=== PATIENT | male | born 1955 ===

== ENCOUNTER 2017-09-13 08:00 | Observation (INO) ==
--- OUTSIDE RECORDS SUMMARY | 2017-09-13 08:09 | External Medical Summary | Summary of Care ---
:1955 Author Name Shmuel Daley M.D. Address Unavailable Unavailable , Care Team Providers Name Role Phone Shmuel Daley M.D. Unavailable Unavailable Shmuel Daley Unavailable Unavailable Unavailable Unavailable Unavailable Functional Status Functional Status Health Issues Name Dates Details Functional status health issues are not documented Status: Cognitive Status Health Issues Name Dates Details Cognitive status health issues are not documented Status: Problems Name Dates Details Restless legs syndrome (333.94, G25.81) Status: Active Exposure to STD (V01.6, Z20.2) Status: Active Tinea corporis (110.5, B35.4) Status: Active Atopic dermatitis (691.8, L20.9) Status: Active Urticaria (708.9, L50.9) Status: Active Acute sinusitis (461.9, J01.90) Status: Active Microscopic hematuria (599.72, R31.29) Status: Active URI, acute (465.9, J06.9) Status: Active Hematuria (599.70, R31.9) Status: Active 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, E29.1) Status: Active Male erectile disorder (607.84, N52.9) Status: Active Epicondylitis, lateral (726.32, M77.10) Status: Active Ganglion of hand, left (727.41, M67.442) Status: Active Pain of left hand (729.5, M79.642) Status: Active Other cyst of bone, hand (733.29, M85.649) Status: Active Numbness in feet (782.0, R20.0) Status: Active Paresthesia (782.0, R20.2) Status: Active Hypercholesterolemia (272.0, E78.00) Status: Active Shortness of breath (786.05, R06.02) Status: Active Near syncope (780.2, R55) Status: Active Medications Name Dates Details Benadryl 25 MG TABS TAKE 1-2 TABLET EVERY 4 HOURS NEEDED Refills: 0 Start 28-Dec-2013 Active Isela Allergy 180 MG Oral Tablet TAKE 1 TABLET DAILY NEEDED. Quantity: 90 Refills: 0 Shmuel Daley M.D. Start 22-Jul-2015 Active Allergies and Adverse Reactions Name Dates Details No Known Drug Allergies (Allergy) Status: Active Past Medical History Name Dates Details H/O shortness of breath (V13.89, Z87.898) Status: Resolved History of dizziness (V13.89, Z87.898) Status: Resolved Procedures Procedure Dates Details History of Foot Surgery Left [facility] (within facility) Ordered: 08-Jul-2016 ULTRASOUND CAROTID Ordered: 08-Jul-2016 Immunization Name Dates Details Immunizations not documented Family History Unknown Family Member Name Dates Details Family history of Alcoholism Comments: Family History Status: Active Family history of Colon Cancer (V16.0) Comments: Family History Status: Active Father Name Dates Details Family history of Emphysema Status: Active Family history of Prostate Cancer (V16.42) Status: Active Social History Name Dates Details - Status: Smoking Status Name Dates Details Smoker. current status unknown Vital Signs Date Test Result Details 08-Jul-2016 09:38 BP Systolic 112 mm[Hg] Status: Comments: Location: ; Position: BP Diastolic 70 mm[Hg] Status: Comments: Location: ; Position: Heart Rate 80 /min Status: Comments: Location: ; Height 70 in Status: Weight 197 lb Status: Physical Findings 98 Status: Comments: O2 Saturation Body Mass Index Calculated 28.27 kg/m2 Status: Body Surface Area Calculated 2.07 m2 Status: Results Date Description Value Details 08-Jul-2016 10:11 CP Stress Echo Y STRESS ECHO Plan of Care Name Dates Details Planned Observations [facility]iology [facility] (within facility) On 08-Jul-2016 Intent Planned Goals not documented Interventions Provided Medication ChangesCrestor 20 MG Oral Tablet - CompletedLabs/Procedures/Imaging ULTRASOUND CAROTID; To be Done: 08 Jul 2016 Instructions Name Dates Details Instructions not documented Encounters Appointment; Juan Dunne M.D. On 31-Mar-2016 Encounter Diagnosis: Problem not documented 08:30 Appointment; Shmuel Daley M.D. On Encounter Diagnosis: Problem not documented 15:45 Appointment; Robert Cheema M.D. On 16-Oct-2015 Encounter Diagnosis: Problem not documented 14:30 Appointment; Shmuel Daley M.D. On 02-Oct-2015 Encounter Diagnosis: Problem not documented 13:30 Appointment; Shmuel Daley M.D. On 22-Jul-2015 Encounter Diagnosis: Problem not documented 10:30 Appointment; Sin Santiago M.D.,DEBBI[facility], On 20-Sep-2014 Encounter Diagnosis: Problem not documented 09:30 Appointment; hSmuel Daley M.D. On 10-Sep-2014 Encounter Diagnosis: Problem not documented 14:00 Appointment; Sin Santiago M.D.,DEBBI[facility], On 02-Sep-2014 Encounter Diagnosis: Problem not documented 10:00 Appointment; Shmuel Daley M.D. On 29-Jul-2014 Encounter Diagnosis: Problem not documented 10:30
--- OUTSIDE RECORDS SUMMARY | 2017-09-13 08:09 | External Medical Summary | Summary of Care ---
:1955 Author Name Shmuel Daley M.D. Address [address], [place] [id number] Care Team Providers Name Role Phone Shmuel Daley M.D. 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 Started 12-Apr-2013 ActiveBenadryl 25 MG Oral Tablet TAKE 1-2 TABLET EVERY 4 HOURS NEEDED Refills: 0 Started 28-Dec-2013 ActiveAndroGel Pump 20.25 MG/ACT (1.62%) Transdermal Gel apply one pump daily Quantity: 1 Refills: 0 Shmuel Daley M.D. Started 06-Aug-2014 [id number] GM Pump Btl Allergies and Adverse Reactions Name Dates Details No Known Drug Allergies Status: Active Procedures Procedure Dates Details History of Foot Surgery Left Testosterone 3102 Ordered:26-Aug-2014 Immunization Name Dates Details Immunizations not documented Family History Unknown Family Member Name Dates Details Family history of Alcoholism Comments: Family History Status: Active Family history of Colon Cancer (V16.0) Comments: Family History Status: Active Father Name Dates Details Family history of Emphysema Status: Active Family history of Prostate Cancer (V16.42) Status: Active Social History Smoking StatusUnknown if ever smoked Vital Signs Date Test Result Details No Known Vitals to report Results Date Description Value Details 03-Aug-2014 10:02 Urinalysis, Reflex to Microscopic or Culture PRN 8005 pH 6.5 (Better) Range: 5.0-7.5 SP GRAVITY 1.025 (Better) Range: 1.010-1.030 APPEARANCE CLEAR (Better) Range: Clear COLOR YELLOW (Better) Range: Straw-Yellow PROTEIN NEGATIVE mg/dL Range: Negative-Trace (Better) GLUCOSE NEGATIVE mg/dL Range: Negative (Better) KETONE NEGATIVE mg/dL Range: Negative (Better) BILIRUB NEGATIVE (Better) Range: Negative BLOOD MODERATE (Abnormal) Range: Negative UROBIL 1.0 EU/dL (Better) Range: 0.2-1.0 NITRITE NEGATIVE (Better) Range: Negative LEUK NEGATIVE (Better) Range: Negative 10:02 Urine Microscopic UMIC RBC 0-2 /HPF (Better) Range: 0-2 HYAL CAST 0-2 /LPF (Better) Range: 0-2 BACTERIA Trace /HPF (Better) Range: Negative-Trace EPITH 0-2 /HPF (Better) Range: 0-10 Plan of Care Planned Observations Name Dates Details Planned Goals not documented Goal Planned Encounters Appointment; Provider: Sin Santiago On 02-Sep-2014 10:00 Instructions Instructions not documented Encounters Appointment; Shmuel Daley On 29-Jul-2014 Encounter Diagnosis: Problem not documented 10:30 Appointment; Best Dominguez On 20-Feb-2014 Encounter Diagnosis: Problem not documented 11:30 Appointment; Shmuel Daley On 23-Jan-2014 Encounter Diagnosis: Problem not documented 15:15 Appointment; Shmuel Daley On 28-Dec-2013 Encounter Diagnosis: Problem not documented 14:45 Appointment; Shmuel Daley On 31-Aug-2013 Encounter Diagnosis: Problem not documented 14:30 Appointment; Shmuel Daley On 01-Jun-2013 Encounter Diagnosis: Problem not documented 15:30 Appointment; Shmuel Daley On 12-Apr-2013 Encounter Diagnosis: Problem not documented 10:30
--- OUTSIDE RECORDS SUMMARY | 2017-09-13 08:10 | External Medical Summary | Summary of Care ---
:1955 Author Name Jack Morales, DEBBIE, ,Sin Address [address] [place], [place] [id number] Care Team Providers Name Role Phone Shmuel [...] serum testosterone level (257.2, E29.1) Status: Active Microscopic hematuria (599.72, R31.2) Status: Active Medications Name Dates Details Crestor 20 MG Oral Tablet Take 1 tablet daily Quantity: 90 Refills: 3 Shmuel Daley M.D. Started 12-Apr-2013 ActiveBenadryl 25 MG Oral Tablet TAKE 1-2 TABLET EVERY 4 HOURS NEEDED Refills: 0 Started 28-Dec-2013 ActiveAndroGel Pump 20.25 MG/ACT (1.62%) Transdermal Gel apply one pump daily Quantity: 1 Refills: 0 Shmuel Daley M.D. Started 06-Aug-2014 [id number] GM Pump Btl Allergies and Adverse Reactions Name Dates Details No Known Drug Allergies Status: Active Procedures Procedure Dates Details History of Foot Surgery Left URINE CULTURE 5010 Ordered:02-Sep-2014 CT AB/ PEL WITHOUT AND WITH ORAL AND IV CONTRAST Ordered:02-Sep-2014 Immunization Name Dates Details Immunizations not documented [...] smoked Vital Signs Date Test Result Details 02-Sep-2014 10:11 BP Systolic 135 mm[Hg] Status: BP Diastolic 81 mm[Hg] Status: Results Date Description Value Details 02-Sep-2014 10:18 Testosterone 3102 TST 154 ng/dL (Below low Range: 241-827 threshold) 12:05 CYTOLOGY - URINE 4444 CYTOLOGY Specimen referred to [facility]. Report to follow. (Better) Plan of Care Planned Observations Name Dates Details Planned Goals not documented Goal Planned Encounters Appointment; Provider: Sin Santiago On 20-Sep-2014 09:30 Instructions Instructions not documented Encounters Appointment; Sin Santiago On 02-Sep-2014 Encounter Diagnosis: Problem not documented 10:00 Appointment; Shmuel Daley On 29-Jul-2014 Encounter Diagnosis: [...]
--- OUTSIDE RECORDS SUMMARY | 2017-09-13 08:10 | External Medical Summary | Summary of Care ---
[...] (461.9, J01.90) Status: Active Microscopic hematuria (599.72, R31.2) Status: Active URI, acute (465.9, J06.9) Status: [...] Numbness in feet (782.0, R20.0) Status: Active Medications Name Dates Details Crestor 20 MG Oral Tablet Take 1 tablet daily Quantity: 90 Refills: 3 Shmuel Daley M.D. Started 12-Apr-2013 ActiveBenadryl 25 MG Oral Tablet TAKE 1-2 TABLET EVERY 4 HOURS NEEDED Refills: 0 Started 28-Dec-2013 ActiveAllegra Allergy 180 MG Oral Tablet TAKE 1 TABLET DAILY NEEDED. Quantity: 90 Refills: 0 Shmuel Daley M.D. Started 22-Jul-2015 Active Allergies and Adverse Reactions Name Dates Details No Known Drug Allergies Status: Active Procedures Procedure Dates Details History of Foot Surgery Left Comprehensive Metabolic Panel 1212 Ordered: CBC w/ Auto Diff 7150 Ordered: Urinalysis, Reflex to Microscopic or Culture PRN 8005 Ordered: FOLATE 3608 Ordered: VITAMIN B12 3606 Ordered: Vitamin D, 25 - Hydroxy 3111 Ordered: THYROID STIM. HORMONE 3602 Ordered: FREE T4 3604 Ordered: Immunization Name Dates Details Immunizations not documented Family History Unknown Family Member Name Dates Details Family history of Alcoholism Comments: Family History Status: Active Family history of Colon Cancer (V16.0) Comments: Family History Status: Active Father Name Dates Details Family history of Emphysema Status: Active Family history of Prostate Cancer (V16.42) Status: Active Social History Name Dates Details Smoking StatusCurrent some day smoker Vital Signs Date Test Result Details 16:21 BP Systolic 112 mm[Hg] Status: BP Diastolic 72 mm[Hg] Status: Weight 190 lb Status: Body Mass Index Calculated 27.26 kg/m2 Status: Body Surface Area Calculated 2.04 m2 Status: Results Date Description Value Details Results not documented Plan of Care Planned Observations Name Dates Details Planned Goals not documented Goal Planned Encounters Appointment; Provider: Shmuel Daley On 19-Jan-2016 09:00 Appointment; Provider: Juan Dunne On 15-Jan-2016 15:00 Instructions Instructions not documented Encounters Appointment; Shmuel Daley On Encounter Diagnosis: Problem not documented 15:45 Appointment; Robert Cheema On 16-Oct-2015 Encounter Diagnosis: Problem not documented 14:30 Appointment; Shmuel Daley On 02-Oct-2015 Encounter Diagnosis: Problem not documented 13:30 Appointment; Shmuel Daley On 22-Jul-2015 Encounter Diagnosis: Problem not documented 10:30 Appointment; Sin Santiago On 20-Sep-2014 Encounter Diagnosis: Problem not documented 09:30 Appointment; Shmuel Daley On 10-Sep-2014 Encounter Diagnosis: Problem not documented 14:00 Appointment; Sin Santiago On 02-Sep-2014 Encounter Diagnosis: Problem not documented 10:00 Appointment; Shmuel Daley On 29-Jul-2014 Encounter Diagnosis: Problem not documented 10:30 Appointment; Best Dominguez On 20-Feb-2014 Encounter Diagnosis: Problem not documented 11:30 Appointment; Shmuel Daley On 23-Jan-2014 Encounter Diagnosis: Problem not documented 15:15 Appointment; Shmuel Daley On 28-Dec-2013 Encounter Diagnosis: Problem not documented 14:45
--- OUTSIDE RECORDS SUMMARY | 2017-09-13 08:10 | External Medical Summary | Summary of Care ---
:1955 Author Name Shmuel Daley M.D. Address Unavailable Unavailable , Care Team Providers Name Role Phone Shmuel Daley M.D. Unavailable Unavailable Radiology, Schedule Unavailable Unavailable Shmuel Daley Unavailable Unavailable Unavailable Unavailable Functional Status Functional [...] Active Near syncope (780.2, R55) Status: Active Falls frequently (V15.88, R29.6) Status: Active Medications Name Dates Details Benadryl [...] Dates Details History of Foot Surgery Left CP Echo Ordered: 16-Jul-2016 CP Stress Echo Ordered: 16-Jul-2016 Immunization Name Dates Details Immunizations not documented [...] unknown Vital Signs Date Test Result Details No Known Vitals to report Results Date Description Value Details Results not documented Plan of Care Name Dates Details Planned Observations Planned Goals not documented Planned Encounters Appointment; Provider: Schedule Radiology On 16-Jul-2016 11:00 Instructions Name Dates Details Instructions not documented Encounters Appointment; Shmuel Daley M.D. On 08-Jul-2016 Encounter Diagnosis: Problem not documented 09:30 Appointment; Juan Dunne M.D. On 31-Mar-2016 Encounter Diagnosis: Problem not documented 08:30 Appointment; Shmuel Daley M.D. On Encounter Diagnosis: Problem not documented 15:45 Appointment; Robert Cheema M.D. On 16-Oct-2015 Encounter Diagnosis: Problem not documented 14:30 Appointment; Shmuel Daley M.D. On 02-Oct-2015 Encounter Diagnosis: Problem not documented 13:30 Appointment; Shmuel Daley M.D. On 22-Jul-2015 Encounter Diagnosis: Problem not documented 10:30 Appointment; Sin Santiago M.D.,[facility], On 20-Sep-2014 Encounter Diagnosis: Problem not documented 09:30 Appointment; Shmuel Daley M.D. On 10-Sep-2014 Encounter Diagnosis: Problem not documented 14:00
--- OUTSIDE RECORDS SUMMARY | 2017-09-13 08:10 | External Medical Summary ---
:1955 Author Name GENERATED, SYSTEM Care Team Providers Name Role Phone MD REDDY JEFF Primary Care Provider [phone] Reason For Visit Chief Complaint 599.70 257.2 Social History Functional Status Vital Signs Results Problems Encounter Diagnosis No relevant problems exist. Encounters Encounter Diagnosis No relevant problems exist. Plan of Care Procedures No relevant procedures performed. Immunizations No immunizations administered or ordered. Hospital Course Hospital Discharge Instructions Allergies, Adverse Reactions, Alerts Latex Allergy has not been assessed.IV Contrast Allergy has not been assessed. Medication Medication reconciliation has not been performed.
--- OUTSIDE RECORDS SUMMARY | 2017-09-13 08:10 | External Medical Summary | Summary of Care ---
[...] Details Planned Observations Planned Goals not documented Interventions Provided Medication [...]
--- OUTSIDE RECORDS SUMMARY | 2017-09-13 08:10 | External Medical Summary | Summary of Care ---
:1955 Author Name Shmuel Daley M.D. Address [address], [place] [id number] Care Team Providers Name Role Phone Shmuel [...] Active Microscopic hematuria (599.72, R31.2) Status: Active Acute sinusitis (461.9, J01.90) Status: Active Medications Name Dates Details Crestor 20 MG Oral Tablet Take 1 tablet daily Quantity: 90 Refills: 3 Shmuel Daley M.D. Started 12-Apr-2013 ActiveBenadryl 25 MG Oral Tablet TAKE 1-2 TABLET EVERY 4 HOURS NEEDED Refills: 0 Started 28-Dec-2013 ActiveAndroGel Pump 20.25 MG/ACT (1.62%) Transdermal Gel apply one pump daily Quantity: 1 Refills: 0 Shmuel Daley M.D. Started 06-Aug-2014 [id number] GM Pump Btl Levofloxacin 750 MG Oral Tablet Take 1 tablet daily Quantity: 7 Refills: 0 Shmuel Daley M.D. Started 10-Sep-2014 ActiveMedrol (Karthikeyan) 4 MG Oral Tablet TAKE DIRECTED ON PATIENT INSTRUCTION CARD. Quantity: 1 Refills: 0 Shmuel Daley M.D. Started 10-Sep-2014 [id number] Tablet Box Allergies and Adverse Reactions Name Dates Details No Known Drug Allergies Status: Active Procedures Procedure Dates Details History of Foot Surgery Left Procedures not documented Immunization Name Dates Details Immunizations not documented [...] smoked Vital Signs Date Test Result Details 10-Sep-2014 13:50 BP Systolic 130 mm[Hg] Status: BP Diastolic 72 mm[Hg] Status: Weight 201 lb Status: Body Mass Index Calculated 28.84 kg/m2 Status: Body Surface Area Calculated 2.09 m2 Status: 02-Sep-2014 10:11 BP Systolic 135 mm[Hg] Status: BP Diastolic 81 mm[Hg] Status: Results Date Description Value Details 02-Sep-2014 10:18 Testosterone 3102 TST 154 ng/dL (Below low Range: 241-827 threshold) 12:05 CYTOLOGY - URINE 4444 CYTOLOGY Specimen referred to [facility]. Report to follow. (Better) 04-Sep-2014 07:19 URINE CULTURE 5010 *URINE CULTURE Microbiology results Comments: URINE SOURCE:Clean CatchCOLONY COUNTNo Growth----- (Better) 06-Sep-2014 CT AB/ PEL WITHOUT AND Comments: Exam Date: 08: 41Dictation Date: 09:46 09:46 WITH ORAL AND IV CONTRAST XC ABD/PEL W/O & W/ (Better) Plan of Care Planned Observations Name Dates Details Planned Goals not documented Goal Planned Encounters Appointment; Provider: Sin Santiago On 20-Sep-2014 09:30 Instructions Instructions not documented Encounters Appointment; Shmuel Daley On 10-Sep-2014 Encounter Diagnosis: [...]
--- OUTSIDE RECORDS SUMMARY | 2017-09-13 08:10 | External Medical Summary | Summary of Care ---
:1955 Author Name Shmuel Daley M.D. Address [address], [place] [id number] Care Team Providers Name Role Phone Shmuel [...] of hand, left (727.41, M67.442) Status: Active Medications Name Dates Details Crestor 20 MG Oral Tablet Take 1 tablet daily Quantity: 90 Refills: 3 Shmuel Daley M.D. Started 12-Apr-2013 ActiveBenadryl 25 MG Oral Tablet TAKE 1-2 TABLET EVERY 4 HOURS NEEDED Refills: 0 Started 28-Dec-2013 ActiveAllegra Allergy 180 MG Oral Tablet TAKE 1 TABLET DAILY NEEDED. Quantity: 90 Refills: 0 Shmuel Daley M.D. Started 22-Jul-2015 ActiveAspirin 81 MG TABS TAKE 1 TABLET DAILY. Quantity: 30 Refills: 0 Shmuel Daley M.D. Started 22-Jul-2015 [...] smoker Vital Signs Date Test Result Details 02-Oct-2015 13:35 BP Systolic 116 mm[Hg] Status: BP Diastolic 84 mm[Hg] Status: Weight 198 lb Status: Body Mass Index Calculated 28.41 kg/m2 Status: Body Surface Area Calculated 2.08 m2 Status: Results Date Description Value Details Results not documented Plan of Care Planned Observations Name Dates Details Planned Goals not documented Goal Planned Encounters Appointment; Provider: Shmuel Daley On 19-Jan-2016 09:00 Appointment; Provider: Robert Cheema On 16-Oct-2015 14:30 Instructions Instructions not documented Encounters Appointment; Shmuel Daley On 02-Oct-2015 Encounter Diagnosis: Problem not documented 13:30 Appointment; Shmuel Dalye On 22-Jul-2015 Encounter Diagnosis: Problem not documented [...]
--- OUTSIDE RECORDS SUMMARY | 2017-09-13 08:10 | External Medical Summary | Summary of Care ---
:1955 Author Name Jack Morales, DEBBIE, ,Sin Address [address], [place] [id number] Care Team Providers Name Role Phone Shmuel [...] Refills: 0 Shmuel Daley M.D. Started 06-Aug-2014 [id number] GM Pump Btl Allergies and Adverse Reactions [...] - URINE 4444 CYTOLOGY Specimen referred to [facility]. Report to follow. (Better) Plan of [...] Diagnosis: Problem not documented 14:30 Appointment; Shmuel aDley On 01-Jun-2013 Encounter Diagnosis: Problem not documented 15:30 Appointment; Shmuel Daley On 12-Apr-2013 Encounter Diagnosis: Problem not documented 10:30
--- OUTSIDE RECORDS SUMMARY | 2017-09-13 08:10 | External Medical Summary | Summary of Care ---
:1955 Author Name Jamie Price P.T..P.TKandice Goff Address [address], [place] [id number] Care Team Providers Name Role Phone Shmuel Daley M.D. Unavailable Unavailable Jamie Price P.T..P.TKandice Goff Unavailable Unavailable Shmuel Daley Unavailable Unavailable Unavailable [...] Active Falls frequently (V15.88, R29.6) Status: Active Cardiac arrhythmia, unspecified cardiac arrhythmia type (427.9, I49.9) Status: Active Acute shoulder bursitis, right (726.10, M75.51) Status: Active Medications Name Dates Details Benadryl [...] unknown Vital Signs Date Test Result Details 13:37 BP Systolic 126 mm[Hg] Status: Comments: Location: ; Position: BP Diastolic 76 mm[Hg] Status: Comments: Location: ; Position: Heart Rate 76 /min Status: Comments: Location: ; Weight 204.25 lb Status: Body Mass Index Calculated 29.31 kg/m2 Status: Body Surface Area Calculated 2.11 m2 Status: Results Date Description Value Details 15:34 LG JOINT ASPIRATION/INJECTION RIGHT Comments: Exam Date: 11/15/2016 14:32Dictation Date: 11/15/2016 15:34 XF LG JOINT ASP/INJ RIGHT Plan of Care Name Dates Details Planned Observations Planned Goals not documented Planned Encounters Appointment; Provider: Kandice Price PFlorecita|D.P.T. On 10:00 Instructions Name Dates Details Instructions not documented Encounters Appointment; Shmuel Daley M.D. On Encounter Diagnosis: Problem not documented 13:30 Appointment; Shmuel Daley M.D. On 08-Jul-2016 Encounter [...] On 22-Jul-2015 Encounter Diagnosis: Problem not documented 10:30"
--- OUTSIDE RECORDS SUMMARY | 2017-09-13 08:10 | External Medical Summary | Summary of Care ---
[...] documented Planned Encounters Appointment; Provider: Kandice Price P.T.|Jamie.P.TDenver On 11:30 Appointment; Provider: Schedule Radiology On 14:30 Interventions Provided Labs/Procedures/ImagingLG JOINT ASPIRATION/INJECTION RIGHT; Done: Nov 15 2016 3 :34PM Instructions Name Dates Details Instructions not documented [...]
--- OUTSIDE RECORDS SUMMARY | 2017-09-13 08:10 | External Medical Summary | Summary of Care ---
:1955 Author Name Shmuel Daley M.D. Address [address], [place] [id number] Care Team Providers Name Role Phone Shmuel [...] Refills: 0 Shmuel Daley M.D. Started 06-Aug-2014 [id number] GM Pump Btl Allergies and Adverse Reactions [...]
--- OUTSIDE RECORDS SUMMARY | 2017-09-13 08:10 | External Medical Summary | Summary of Care ---
:1955 Author Name Shmuel Daley M.D. Address [address], [place] [id number] Care Team Providers Name Role Phone Shmuel [...] Male erectile disorder (607.84, N52.9) Status: Active Medications Name Dates Details Crestor 20 MG Oral Tablet Take 1 tablet daily Quantity: 90 Refills: 3 Shmuel Daley M.D. Started 12-Apr-2013 ActiveBenadryl 25 MG Oral Tablet TAKE 1-2 TABLET EVERY 4 HOURS NEEDED Refills: 0 Started 28-Dec-2013 ActiveAllegra Allergy 180 MG Oral Tablet TAKE 1 TABLET DAILY NEEDED. Quantity: 90 Refills: 0 Shmuel Daley M.D. Started 22-Jul-2015 ActiveAspirin 81 MG Oral Tablet TAKE 1 TABLET DAILY. Quantity: 30 Refills: [...] smoked Vital Signs Date Test Result Details 22-Jul-2015 10:26 BP Systolic 132 mm[Hg] Status: BP Diastolic 88 mm[Hg] Status: Weight 198 lb Status: Body Mass Index Calculated 28.41 kg/m2 Status: Body Surface Area Calculated 2.08 m2 Status: Results Date Description Value Details 22-Jul-2015 09:48 CBC w/ Auto Diff 7150 Comments: Fastin hours WBC 6.1 K/uL (Better) Range: 4.5-11.0 RBC 4.34 mil/uL Range: 4.20-5.40 (Better) HGB 13.7 g/dL (Below Range: 14.0-18.0 low threshold) HCT 43.5 % (Better) Range: 42.0-53.0 MCV 100.3 fL (Above Range: 80.0-99.0 high threshold) MCH 31.7 pg (Better) Range: 27.3-32.5 MCHC 31.6 % (Below low Range: 32.0-36.0 threshold) RDW 12.8 % (Better) Range: 11.6-14.8 PLATELETS 208 K/uL (Better) Range: 150-400 MPV 7.5 fL (Better) Range: 6.0-11.0 %NEUTRO 56.1 % (Better) Range: 37.0-80.0 %LYMPHS 28.0 % (Better) Range: 13.0-50.0 %MONO 8.4 % (Better) Range: 0.0-12.0 %EOS 3.8 % (Better) Range: 0.0-7.0 %BASO 1.1 % (Better) Range: 0.0-2.5 %LYSSA 2.6 % (Better) Range: 0.0-5.0 NEUTRO 3.4 K/uL (Better) Range: 2.0-6.9 LYMPHS 1.7 K/uL (Better) Range: 0.6-3.4 MONOS 0.5 K/uL (Better) Range: 0.0-0.9 EOS 0.2 K/uL (Better) Range: 0.0-0.7 BASO 0.1 K/uL (Better) Range: 0.0-0.2 09:55 Urinalysis, Reflex to Comments: Fastin hours Microscopic or Culture PRN 8005 pH 7.5 (Better) Range: 5.0-7.5 SP GRAVITY <=1.005 Range: 1.010-1.030 (Abnormal) APPEARANCE CLEAR (Better) Range: Clear COLOR YELLOW (Better) Range: Straw-Yellow PROTEIN NEGATIVE mg/dL Range: Negative-Trace (Better) GLUCOSE NEGATIVE mg/dL Range: Negative (Better) KETONE NEGATIVE mg/dL Range: Negative (Better) BILIRUB NEGATIVE (Better) Range: Negative BLOOD TRACE (Abnormal) Range: Negative UROBIL 0.2 EU/dL (Better) Range: 0.2-1.0 NITRITE NEGATIVE (Better) Range: Negative LEUK NEGATIVE (Better) Range: Negative 09:55 Urine Microscopic UMIC Comments: Fastin hours RBC 0-2 /HPF (Better) Range: 0-2 EPITH 0-2 /HPF (Better) Range: 0-10 10:11 LIPID PROFILE 1184 Comments: Fastin hours CHOLESTEROL 165 mg/dL (Better) Range: <200 TRIGLYCERIDES 103 mg/dL (Better) Range: 30-200 HDL Cholesterol 51 mg/dL (Better) Range: >39 NON HDL CHOLESTEROL 114 (Better) CARDIAC RSK FACTOR 3.2 units (Below Range: 4.4-5.0 low threshold) LDL - CALCULATED 93 mg/dL (Better) Range: 0-130 10:11 Comprehensive Metabolic Comments: Fastin hours Panel 1212 SODIUM 140 mmol/L (Better) Range: 133-144 POTASSIUM 4.2 mmol/L (Better) Range: 3.5-5.1 CHLORIDE 103 mmol/L (Better) Range: 98-110 CARBON DIOXIDE 28.0 mmol/L Range: 23.0-33.0 (Better) ANION GAP 9 mmol/L (Better) Range: 6-16 BUN 14 mg/dL (Better) Range: 7-18 CREATININE, SERUM 1.01 mg/dL (Better) Range: 0.70-1.30 Comments: Please note new reference ranges effective 2014.----- BUN:CREATININE RATIO 14 (Better) EST GFR, >60 ml/min Range: >60 (Better) EST GFR, NON-AFR AUSTRALIAN >60 ml/min Range: >60 (Better) Comments: EST GFR is reported in ml/min per 1.73 m2 of body surface area. For -Fijian, please multiple result by 1.2.----- GLUCOSE 96 mg/dL (Better) Range: 70-100 ALK PHOSPHATASE 40 U/L (Below low Range: 46-116 threshold) TOTAL BILIRUBIN 0.40 mg/dL (Better) Range: 0.20-1.00 AST 25 U/L (Better) Range: 8-35 ALT 37 U/L (Better) Range: 16-63 Comments: Please note new reference ranges. Effective 08/08/2014.----- ALBUMIN 3.8 g/dL (Better) Range: 3.4-5.0 TOTAL PROTEIN 6.9 g/dL (Better) Range: 6.4-8.2 A/G RATIO 1.2 units (Better) Range: 1.0-1.8 CALCIUM 8.6 mg/dL (Better) Range: 8.5-10.1 10:26 PSA ( PROSTATE SPECIFIC Comments: Fastin hours ANTIGEN) 3100 PROSTATE SPECIFIC ANTIGEN 3.070 ng/mL Range: 0.000-4.000 (Better) 10:26 FREE T4 3604 Comments: Fastin hours FREE T4 0.85 ng/dL (Better) Range: 0.80-1.67 10:27 THYROID STIM. HORMONE Comments: Fastin hours 3602 THYROID STIM. HORMONE 1.887 uIU/mL Range: 0.550-4.780 (Better) Comments: No established reference ranges for infants and children <2 years of age----- 10:27 Testosterone 3102 Comments: Fastin hours TST 178 ng/dL (Below Range: 241-827 low threshold) Plan of Care Planned Observations Name Dates Details Planned Goals not documented Goal Planned Encounters Appointment; Provider: Shmuel Daley On 19-Jan-2016 09:00 Instructions Instructions not documented Encounters Appointment; Shmuel Daley On 22-Jul-2015 Encounter Diagnosis: Problem not documented 10:30 Appointment; Sin Santiago On 20-Sep-2014 Encounter Diagnosis: Problem not documented 09:30 Appointment; Shmuel aDley On 10-Sep-2014 Encounter Diagnosis: Problem not documented [...]
--- OUTSIDE RECORDS SUMMARY | 2017-09-13 08:10 | External Medical Summary | Summary of Care ---
:1955 Author Name Jack Morales, DEBBIE, ,Sin Address [address], [place] [id number] Care Team Providers Name Role Phone Shmuel [...] serum testosterone level (257.2, E29.1) Status: Active Acute sinusitis (461.9, J01.90) Status: [...] Refills: 0 Shmuel Daley M.D. Started 06-Aug-2014 [id number] GM Pump Btl Levofloxacin 750 MG Oral Tablet Take 1 tablet daily Quantity: 7 Refills: 0 Shmuel Daley M.D. Started 10-Sep-2014 ActiveMedrol (Karthikeyan) 4 MG Oral Tablet TAKE DIRECTED ON PATIENT INSTRUCTION CARD. Quantity: 1 Refills: 0 Shumel Daley M.D. Started 10-Sep-2014 [id number] Tablet Box Allergies and Adverse Reactions Name [...] Dates Details Planned Goals not documented Goal Instructions Instructions not documented Encounters Appointment; Sin Santiago On 20-Sep-2014 Encounter Diagnosis: [...]
--- OUTSIDE RECORDS SUMMARY | 2017-09-13 08:11 | External Medical Summary | Continuity of Care Document ---
:1955 Author Organization [facility] Allergies Active Description Code Type Severity Reaction Onset Reported/ Identified Relationship Clinical to Patient Status Yes No Known NKA Misce Unknown N/A 07/05/2016 Allergies llane ous Aller gy Yes No Known NKA Misce Unknown N/A 07/05/2016 Allergies.. llane ous Aller gy Yes No Known NKA Misce Unknown N/A 07/05/2016 Allergies llane ous Aller gy Yes No Known NKMA N/A N/A 08/11/2017 Medication Allergies Medications Medication Packaging Start Date Stop Route Dosage Sig Date 4 tabs 08/11/2017 Oral 800 mg 800 ibuprofen(ibuprof mg=4 tabs, Oral, en 200 mg oral BID, takes every tablet) day per to help relieve inflammation in back, 0 Refill(s) 1 tabs 08/11/2017 Oral 180 mg 180 fexofenadine(Jackson mg=1 tabs, Oral, gra 24 Hour Daily, PRN: as Allergy oral needed for tablet) allergy symptoms, 30 tabs, 0 Refill(s) 1 Each 08/11/2017 Chewed 2 mg 2 nicotine(nicotine mg=1 Each, 2 mg oral Chewed, q1hr, transmucosal gum) PRN: as needed for smoking cessation, 40 Each, 0 Refill(s) 2 mL 08/11/2017 08/13/19 IV Push 4 mg 4 ondansetron(Zofra 18 mg=2 mL, IV n) Push, q6hr, PRN: Nausea 1 tabs 08/11/2017 08/13/19 Oral 800 mg 800 ibuprofen(ibuprof 18 mg=1 tabs, Oral, en) BID 1 Each 08/11/2017 08/13/19 Oral 2 mg 2 nicotine(nicotine 18 mg=1 Each, Oral, 2 mg oral q1hr, PRN: Other transmucosal gum) (See Comment) Problems Date Dx Attending Type Code Diagnosis Diagnosed By Coded 10/16/2015 Anette, Working M79.642 Pain in left hand Robert Cheema 10/16/2015 Anette, Working M85.649 Other cyst of bone, Robert Cheema unspecified hand Robert 03/30/2016 W H52.03 Hypermetropia, bilateral 03/30/2016 W H52.223 Regular astigmatism, bilateral 03/30/2016 W H52.4 Presbyopia 03/31/2016 Juan Dunne Working R20.2 Paresthesia of skin Juan Dunne 05/13/2016 W H52.03 Hypermetropia, bilateral 05/13/2016 W H52.223 Regular astigmatism, bilateral 05/13/2016 W H52.4 Presbyopia 05/17/2016 W H52.03 Hypermetropia, bilateral 05/17/2016 W H52.223 Regular astigmatism, bilateral 05/17/2016 W H52.4 Presbyopia 07/05/2016 EDDIE KLEIN, ROJELIO Other E78.1 P 07/05/2016 EDDIE KLEIN, ROJELIO Other R42 P 11/22/2016 O'Tiago, Working M75.51 Bursitis of right O'Kandice Ordoñez shoulder Jenilee 08/11/2017 Clinton Donald Admitting R00.2 08/16/2017 Clinton Donald Final E23.7 Disorder of pituitary gland, unspecified 08/16/2017 Clinton Donald Final I49.3 Ventricular premature depolarization 08/16/2017 Clinton Donald Final R42 Dizziness and giddiness 08/16/2017 Clinton Donald Reason R55 Syncope and collapse 08/16/2017 Mary Beth,Jonn Final Z79.899 Other retirement (current) drug therapy 08/16/2017 Mary Beth,Jonn Final Z87.891 Personal history of nicotine dependence Procedures Code Description Performed By Performed On Arthrocentesis Robert Cheema 10/17/2015 Small Jnt J3301 Kenalog 10 Mg Anette, Robert 10/17/2015 [id number] Needle Juan Dunne 03/31/2016 Electormyography, five or more 54341 Nerve Juan Dunne 03/31/2016 Conduction, 3-4 Studies 68638 SPECIAL 05/13/2016 SERVICE/PROC/REPORT [id number] Physical O'Kandice Ordoñez 11/22/2016 Therapy Eval, Low Complexity Results Test Result Range CP Stress Echo - 07/08/16 10:12 CP Stress Echo STRESS ECHO 0-0 CBC With Platelet and Differential - 08/11/17 19:12 Absolute Basophils 0.05 10*3/uL 0.00-0.20 Absolute Eosinophils 0.20 10*3/uL 0.00-0.50 Absolute Lymphocytes 2.66 10*3/uL 0.80-3.30 Absolute Monocytes 0.66 10*3/uL 0.30-1.00 Absolute Neutrophils 6.11 10*3/uL 1.90-7.00 Basophils 1 % 0-2 Eosinophils 2 % 0-4 HCT 40.8 % 42.0-52.0 HGB 13.4 g/dL 14.0-18.0 Immature Granulocytes 0.2 % 0.0-1.0 Lymphocytes 27 % 20-46 MCH 31.8 pg 27.0-32.0 MCHC 32.8 g/dL 32.0-36.0 MCV 96.7 fL 82.0-99.0 Monocytes 7 % 4-11 MPV 10.2 fL 9.4-12.3 Neutrophils 63 % 51-75 Nucleated RBC Automated 0.0 /100 WBC Platelet Count 233 K/uL 150-400 RBC 4.22 10*6/uL 4.60-6.20 RDW 13.5 % 11.5-14.5 WBC 9.7 K/uL 4.8-10.8 Troponin - 08/11/17 19:12 Troponin <0.05 ng/mL <0.06 Comprehensive Metabolic Panel (CMP) - 08/11/17 19:12 Albumin 4.0 g/dL 3.5-4.8 Alkaline Phosphatase 39 U/L 26-104 ALT (SGPT) 17 U/L 17-63 Anion Gap 10 mEq/L 3-20 AST (SGOT) 25 U/L 15-41 Bilirubin Total 0.4 mg/dL 0.2-1.2 BUN 29 mg/dL 4-20 Calcium 9.3 mg/dL 8.6-10.0 Chloride 105 mEq/L 99-109 CO2 24 mEq/L 22-32 Creatinine 1.15 mg/dL 0.64-1.27 Globulin 2.4 g/dL 1.9-4.3 Glucose 107 mg/dL 70-100 Potassium 4.2 mEq/L 3.6-5.1 Protein 6.4 g/dL 6.1-7.9 Sodium 139 mEq/L 136-144 eGFR - 08/11/17 19:12 eGFR >60 mL/min >60 Magnesium - 08/11/17 19:12 Magnesium 2.0 mg/dL 1.8-2.5 TSH with Reflex Free T4 - 08/11/17 19:12 TSH with Reflex Free T4 2.04 uIU/mL 0.35-5.50 CBC With Platelet No Differential - 08/12/17 03:50 HCT 38.2 % 42.0-52.0 HGB 12.3 g/dL 14.0-18.0 MCH 31.0 pg 27.0-32.0 MCHC 32.2 g/dL 32.0-36.0 MCV 96.2 fL 82.0-99.0 MPV 10.3 fL 9.4-12.3 Platelet Count 198 K/uL 150-400 RBC 3.97 10*6/uL 4.60-6.20 RDW 13.5 % 11.5-14.5 WBC 6.6 K/uL 4.8-10.8 Magnesium - 08/12/17 03:50 Magnesium 2.1 mg/dL 1.8-2.5 Basic Metabolic Panel (BMP) - 08/12/17 03:50 Anion Gap 8 mEq/L 3-20 BUN 28 mg/dL 4-20 Calcium 8.7 mg/dL 8.6-10.0 Chloride 108 mEq/L 99-109 CO2 23 mEq/L 22-32 Creatinine 0.93 mg/dL 0.64-1.27 Glucose 82 mg/dL 70-100 Potassium 3.9 mEq/L 3.6-5.1 Sodium 139 mEq/L 136-144 eGFR - 08/12/17 03:50 eGFR >60 mL/min >60 Hemoglobin A1C - 08/12/17 03:50 Hemoglobin A1C 6.0 % 4.1-5.6 Estimated Average Glucose - 08/12/17 03:50 Estimated Average Glucose 125.5 mg/dL XMR BRAIN/SELLA WO/W VENESSA - 08/22/17 11:41 XMR BRAIN/SELLA WO/W VENESSA 0-0 Encounters ACCT No. Visit Discharge Status Pt. Type Provider Facility Loc./Unit Complaint Date/Time [id number] 07/05/2016 07/05/2016 DIS Emergenc EDDIE KLEIN, [facility] ER [id number] 13:03:00 16:10:00 y [facility] [id number] 08/11/2017 08/12/2017 DIS Outpatie Seery,, [facility] J5W syncope, 8995 18:24:00 19:00:00 [facility] on palpitations Shaw [id number] 08/12/2017 Document [id number] 05:17:47 Registra tion [id number] 09/03/2017 ACT Document 15:38:13 Registra tion [id number] 07/06/2016 Document [id number] 13:21:00 Registra tion [id number] 05/13/2016 Document 15:00:00 Registra tion [id number] 03/30/2016 Document 11:00:00 Registra tion [id number] 08/22/2017 Document 7 11:41:19 Registra tion [id number] 01/12/2017 ACT Outpatie O'Alma Guido 1 [id number] 20:54:33 [facility] [id number] 01/03/2017 ACT Outpatie Guido Daley 1 20:48:03 [id number] 08/30/2016 ACT Outpatie Guido Daley 1 09:22:01 [facility] [id number] 05/24/2016 ACT Outpatie Guido Dunne 1 10:32:05 constantine Latif [facility] [id number] 12/18/2015 ACT Outpatie Guido Daley 1 10:43:27 constantine Marr [facility] [id number] 10/17/2015 ACT Outpatie Monroe Lora 1 08:08:46 Robert villalobos [facility] [id number] 10/03/2015 ACT Outpatie Guido Daley 1 07:37:06 nt [facility] [id number] 07/28/2015 ACT Outpatie ThuyJorgeLora 1 07:40:14 [facility] [id number] 08/29/2017 08/29/2017 DIS Outpatie Forest KLEIN, [facility] [id number] 11:00:00 13:15:00 [facility]
--- OUTSIDE RECORDS SUMMARY | 2017-09-13 08:11 | External Medical Summary | Summary of Care ---
:1955 Author Name Shmuel Daley M.D. Address [address], [place] [address] Care Team Providers Name Role Phone Shmuel [...] Active URI, acute (465.9, J06.9) Status: Active Medications Name Dates Details Crestor 20 MG Oral Tablet Take 1 tablet daily Quantity: 90 Refills: 3 Shmuel Daley M.D. Started 12-Apr-2013 ActiveBenadryl 25 MG Oral Tablet TAKE 1-2 TABLET EVERY 4 HOURS NEEDED Refills: 0 Started 28-Dec-2013 ActiveAndroGel Pump 20.25 MG/ACT (1.62%) Transdermal Gel apply one pump daily Quantity: 1 Refills: 0 Shmuel Daley M.D. Started 06-Aug-2014 [id number] GM Pump Btl Levofloxacin 750 MG Oral Tablet Take 1 tablet daily Quantity: 7 Refills: 0 Shmuel Daley M.D. Started 10-Sep-2014 ActiveMedrol (Karthikeyan) 4 MG Oral Tablet TAKE DIRECTED ON PATIENT INSTRUCTION CARD. Quantity: 1 Refills: 0 Shmuel Daley M.D. Started 10-Sep-2014 [id number] Tablet Box Azithromycin 250 MG Oral Tablet 2 tabs today and 1 daily for 6 days Quantity: 8 Refills: 0 Shmuel Daley M.D. Started Active Allergies and Adverse Reactions Name Dates Details No Known Drug Allergies Status: Active Procedures Procedure Dates Details History of Foot Surgery Left CBC w/ Auto Diff 7150 Ordered:27-Jun-2015 Comprehensive Metabolic Panel 1212 Ordered:27-Jun-2015 FREE T4 3604 Ordered:27-Jun-2015 LIPID PROFILE 1184 Ordered:27-Jun-2015 PSA ( PROSTATE SPECIFIC ANTIGEN) 3100 Ordered:27-Jun-2015 THYROID STIM. HORMONE 3602 Ordered:27-Jun-2015 Urinalysis, Reflex to Microscopic or Culture PRN 8005 Ordered:27-Jun-2015 Testosterone 3102 Ordered:27-Jun-2015 Immunization Name Dates Details Immunizations not documented [...] Planned Encounters Appointment; Provider: Shmuel Daley On 22-Jul-2015 10:30 Instructions Instructions not documented Encounters Appointment; Sin [...]
[2017-09-13 08:25] VITALS: BMI 29.0
--- NOTE | 2017-09-13 09:38 | Cardiology History & Physical ---
History of Present Illness Chief complaint: Abnormal Linq and Afib HPI: Pt sitting up in bed, awake and alert. Denies chest pain or pressure, palpitations or dizziness/lightheadedness. Pt verbalizes readiness to begin AAT. Review of Systems - Constitutional Constitutional: Absent: chills, fever(s) - EENMT Eyes: Absent: change in vision Ears: Absent: ear discharge, ear pain Balance: Absent: vertigo Nose: Present: allergies Mouth/Throat: Absent: sore throat - Cardiovascular Cardiovascular: Absent: chest pain, palpitations, syncope, dyspnea on exertion, edema, heart murmur Vascular: Absent: pedal edema - Respiratory Respiratory: Absent: cough, dyspnea, dyspnea on exertion - Gastrointestinal Gastrointestinal: Absent: constipation, diarrhea, nausea, vomiting - Musculoskeletal Musculoskeletal: Present: arthralgias - Integumentary/Breasts Integumentary: Absent: rash - Neurological Neurological: Absent: vertigo - Psychiatric Psychiatric: Absent: anxiety, depression - Endocrine Endocrine: Absent: palpitations PFSH Patient Stated Medical History Cardiac Arrhythmia Yes Tobacco Use Surgical History: Cyst removed frm left side of neck. Cyst removed from rt side of chest Family History: Father - from [place] at age of 81 - Social History Smoking status: Former smoker Alcohol intake: former Alcohol intake frequency: holidays/special occasions only Housing: house Household members: spouse, children Does patient use chewing tobacco?: No Medications Home Medications Medication Instructions Recorded Confirmed Type Aspirin *EC* [Ecotrin] 1 tab PO DAILY 09/13/17 09/13/17 History Fexofenadine [Isela] 60 mg PO DAILY 09/13/17 09/13/17 History Glucosamine 1,500 mg PO DAILY 09/13/17 09/13/17 History Ibuprofen 800 mg PO BID 09/13/17 09/13/17 History Nicotine Polacrilex [Nicorette] 2 mg BC Q1H PRN 09/13/17 09/13/17 History Flecainide [Tambocor] 50 mg PO BID #60 tab 09/14/17 Rx Allergies Allergy/AdvReac Type Severity Reaction Status Date / Time No Known Allergies Allergy Verified 09/13/17 08:29 Exam Vital signs: Temperature 97.7 F 09/13/17 08:31 Pulse Rate 63 09/13/17 08:31 Respiratory Rate 16 09/13/17 08:31 Blood Pressure 144/81 H 09/13/17 08:31 Pulse Oximetry 96 09/13/17 08:31 - Constitutional no acute distress, cooperative - Routine HEENT Exam Head: Present: normocephalic, atraumatic Eye: Present: EOMI, PERRL ENT: Present: mucous membranes moist - Routine Neck Exam Absent: JVD, carotid bruit, thyromegaly - Routine Chest/Breast/Axilla Exam Chest wall: Absent: tenderness - Routine Respiratory Exam Present: CTA bilaterally. Absent: accessory muscle use, dyspnea, respiratory distress - Routine Cardiovascular Exam Present: S1, S2, no murmur. Absent: JVD - Routine Abdominal Exam Present: soft, normoactive bowel sounds - Routine Extremities Exam Present: pulses intact, normal capillary refill. Absent: edema - Routine Skin Exam Present: intact, dry, warm - Routine Neurological Exam Present: alert, oriented X3, moving all extremities - Routine Psychiatric Exam Present: normal affect, normal thought process Results 09/14/17 04:44 09/14/17 04:44 Cardiac Enzymes 09/13/17 Range/Units 09:12 AST 21 (17-59) U/L CBC 09/13/17 Range/Units 08:33 WBC 6.0 (4.5-11.0) T/MM3 RBC 4.05 L (4.50-5.90) M/MM3 Hgb 12.8 L (13.5-17.5) GM/DL Hct 38.7 L (41-53) % Plt Count 210 (130-400) T/MM3 Neut # (Auto) 3.1 (1.8-7.7) T/MM3 Lymph # (Auto) 2.0 (1-4.8) T/MM3 [place] # (Auto) 0.6 (0-0.8) T/MM3 Eos # (Auto) 0.3 (0-0.5) T/MM3 Baso # (Auto) 0.1 (0-0.2) T/MM3 Comprehensive Metabolic Panel 09/13/17 Range/Units 09:12 Sodium 143 (134-144) MEQ/L Potassium 4.0 (3.6-5) MEQ/L Chloride 108 H (98-107) MEQ/L Carbon Dioxide 26 (22-30) MEQ/L BUN 21.0 H (9-20) MG/DL Creatinine 0.7 L (0.8-1.5) mg/dL Glucose 102 (75-110) MG/DL Calcium 9.1 (8.4-10.2) MG/DL AST 21 (17-59) U/L ALT 15 (1-50) U/L Alkaline Phosphatase 51 (38-126) U/L Total Protein 6.5 (6.3-8.2) g/dL Albumin 4.1 (3.5-5.0) g/dL Intake and Output 09/12/17 09/13/17 09/13/17 22:59 06:59 14:59 Other: Weight 89.3 kg Patient Weight 09/14/17 06:59 Weight 89.3 kg - Imaging and Cardiology Stress echo: other (EF 55-60% with Trace MR and TR on 08/12/17) EKG results: image reviewed - EKG Interpretation EKG: sinus rhythm, normal QRS, normal ST/T EKG interpretations - EKG EKG results cardiology: normal QRS, normal ST/T Hospital Course This is a general summary of the patient's hospital course. For more details refer to the complete medical record. Pt is a 61 y/o male that was seen in the outpatient clinic on 09/07/17 following an abnormal Linq interrogation on 09/06/17, indicating PAF. During this appointment, pt stated he was having lightheadedness, palpitations, and feeling "off". His CHADS-VASC score is 2 and was placed on aspirin 81 mg daily during this office visit. Pt presents to the hospital today to initiate AAT for treatment of his PAF. Time spent with patient: 25 - 35 minutes Resuscitation Status: Full Code Assessment and Plan - Attestation Attestation Narrative: Recommendation After examining the patient I agree with the above assessment. I am involved in the formulation of the patient's plan of care. 09/14/17 13:32 - Assessment and Plan Paroxysmal Atrial Fibrillation - Continue Aspirin 81 mg daily - Initiate Flecainide 50 mg PO BID - Continue tele for rhythms of immediate concern - Will monitor Mg, TSH and free T4 - Will check EKG in the am to rule out QT prolongation
[2017-09-13] MEDS: FLECAINIDE 50 MG TABLET PO SCH ×2 (09:55→20:00)
[2017-09-13] MEDS: IBUPROFEN 200 MG TABLET PO SCH (20:00)
[2017-09-14 07:30] VITALS: BP 139/80; PULSE 64; RESP 16; TEMP 97; O2SAT 93
[2017-09-14] MEDS: FLECAINIDE 50 MG TABLET PO SCH (08:42)
[2017-09-14] MEDS: IBUPROFEN 200 MG TABLET PO SCH (08:43)
[2017-09-14] MEDS ORDERED: FEXOFENADINE 60 MG TABLET PO SCH (09:00)
[2017-09-14] MEDS ORDERED: ASPIRIN *EC* 81 MG TABLET PO SCH (09:00)
[2017-09-14] MEDS ORDERED: GLUCOSAMINE 500 MG CAPSULE PO SCH (09:00)
== END 2017-09-14 10:15 | disposition home or self-care (01) ==
LOC: NMC.PERIOP → SRG 08:11
PROVIDERS: ADMIT Internal Medicine Cardiovascular Disease; ATTEND Internal Medicine Cardiovascular Disease